=== PATIENT | male | born 1980 | race Caucasian/White ===

== ENCOUNTER 2018-12-23 17:58 | Emergency (ER) | payer SELFPAY ==
[2018-12-23 17:58] VITALS: BP 124/86; PULSE 77; RESP 18; TEMP 36.8; O2SAT 97; BMI 29.0
[2018-12-23] MEDS: Diphth,Pertuss(Acell),Tet Vac 0.5 ML Vial IM (18:30)
--- NOTE | 2018-12-23 19:00 | ED.DEP ---
ED Disposition - Plan for ED Patient: Instructions: LACERATION, Scalp Referrals: Care Physician,No Primary [Primary Care Provider] -
--- NOTE | 2018-12-23 19:03 | ED.VISSUMM ---
- ER Visit Summary Date of Service: 12/23/18 Chief Complaint: Scalp laceration History of Present Illness: The patient is a 38 M presenting with laceration to his scalp. Patient states that he was at work. He states he stood up and the top of his head hit a metal beam. He states the corner of the metal cut the top of his head. This occurred 5 hours prior to arrival. His last tetanus is unknown. He is not on anticoagulants. He cleaned the wound prior to arrival. He does not wish to file Worker's Compensation. He denies loss of consciousness. No amnesia to the event. No vomiting. No other injuries. Physical Examination: Vitals are stable. Patient is afebrile. Alert no acute distress. HEENT exam 3 cm laceration superior scalp Neck is right paraspinal cervical muscle tenderness, no midline tenderness Lungs are clear and equal bilaterally. Heart is regular rate and rhythm. Extremities are unremarkable. Skin is warm and dry. No focal neurologic deficit. Remainder of exam is unremarkable. Emergency Department Course and Treatment: Laceration was irrigated. Anesthetized with lidocaine. 4 eric were placed. Patient tolerated this well. He was given tetanus IM. He was given Tylenol. Advised wound care instructions. Advised to follow-up with primary care physician. Advised return to ED for worsening complaints. Disposition: Discharge home Impression: Scalp laceration, laceration repair This note was generated with [employer] dictation software. It may contain incorrect words, spelling, and punctuation that were not noted in review of the chart prior to signing ED Disposition - Plan for ED Patient: Instructions: LACERATION, Scalp Referrals: Care Physician,No Primary [Primary Care Provider] -
== END 2018-12-23 19:28 | disposition home or self-care (01) ==
LOC: ED 18:38
PROVIDERS: Emergency Provider Emergency Medicine
DX: S01.01XA Laceration without foreign body of scalp, initial encounter (principal); W26.8XXA Contact with other sharp object(s), not elsewhere classified, initial encounter; Y93.9 Activity, unspecified; Y92.9 Unspecified place or not applicable
CPT/HCPCS: 12002; 90471; 90715; 99283

== ENCOUNTER 2021-12-19 20:31 | Emergency (ER) | payer OTHER, SELFPAY ==
[2021-12-19 20:32] VITALS: BP 149/94; PULSE 111; RESP 12; TEMP 37.1; O2SAT 96; BMI 27.3
--- NOTE | 2021-12-19 21:10 | EDS_ITS ---
HPI History of Present Illness Chief Complaint: Lower Extremity Injury Informant: patient and spouse/S.O. Narrative Narrative: Patient was stacking firewood. He was not planning on cutting any so he was wearing sandals. He used an ax to cut some wood. He missed the wood and hit his foot. He cut the majority of the tip of his second toe on his left foot off. He has a very small laceration is quite shallow on the medial aspect of his left great toe. Last tetanus is unknown. He has no medical problems. He is on no medications. He has no allergies. He has no other injuries. Dressing it made it better. Nothing makes it worse other than motion. PFSH PFSH Medical History no medical history Home Medications cephalexin 500 mg capsule 500 mg PO Q6 #28 caps 12/19/21 [Rx Last Taken Unknown] oxycodone-acetaminophen 5 mg-325 mg tablet (Percocet) 1 tab PO Q6H PRN pain 3 days #10 tabs 12/19/21 [Rx Last Taken Unknown] Allergy/AdvReac Type Severity Reaction Status Date / Time No Known Allergies Allergy Verified 12/19/21 20:32 Social History Smoking Status: Never smoker ROS ROS ED Constitutional Constitutional ED: Denies fever(s) Gastrointestinal Gastrointestinal: Denies nausea or vomiting Musculoskeletal Musculoskeletal: Reports other Details: Left foot/toe pain. ; Denies neck pain Integumentary Reports other Details: Laceration/near amputation of left second toe as in history of present illness. Neurologic Neurologic: Reports paresthesias and other Details: Mild numbness to tip of toe. Endocrine Endocrinology: Denies polydipsia or polyuria Hematologic/Lymphatic Hematologic/Lymphatic: Denies easy bleeding or easy bruising EXAM Physical Exam Const Vital Signs: 12/19/21 20:32 Temperature 98.8 F Temperature Source Temporal Pulse Rate 111 H Respiratory Rate 12 Blood Pressure 149/94 H Blood Pressure Mean 112 Pulse Ox 96 Oxygen Delivery Method Room Air Positive well nourished and well developed General Appearance ED: well developed HEENT normocephalic and atraumatic Resp normal respiratory effort Extremity Extremity Narrative: Toe was wrapped up. We ended the tape. We added moisture to the dressing. We can see that there is a about 1 cm really abrasion to the lateral aspect of the left great toe that does not need to be sutured. The second toe has a near amputation of the distal centimeter. The laceration goes through the base of where the nail would be although it looks like he chronically is missing a nail. Tendon function appears to be intact. There is no notable bleeding. There was a small amount on the gauze. This is controlled. The toe hurts but he does seem to have decreased sensation of that tip. That tip is also a little bit dusky. I explained this to the patient and his . This may not live but it is worth giving it a try to put this back. Neuro Sensory Exam: sensory level loss detected Skin Skin Narrative: See above. MDM MDM MDM Narrative Medical decision making narrative: Review of the x-ray read by me and reading by radiology shows fracture of the distal phalangeal segment of the left second toe. I discussed the case with Dr. Cárdenas. He stated that unless that distal fra gment is extremely loose we should try to keep it in place. They will follow-up as an outpatient. Patient was given antibiotics here. He is had tetanus updated. Procedure: Suture laceration: Discussed risks and benefits. We also had a long discussion that this toe has laceration through well over 90 to 95% of the cross-sectional area of the toe. There is a small area on the dorsal medial aspect that is holding the flap on. There is some mild decreased color of that distal portion but its not totally avascular. I am hopeful it might make it but it is going to be somewhat risk he. There is also a laceration through the nailbed. After the blood is removed there is more of the nail remaining than I thought. It was anesthetized with a total of 3-1/2 cc of bupivacaine and lidocaine mixed 50: 50. Good anesthesia was achieved. He had no discomfort at all. The area was scrubbed. I scrubbed the whole toe in the area around it. It was sterilely draped. I copiously irrigated it with over 200 cc of saline. We scrubbed the surface. We irrigated more. It was actually clean. The area was sutured with a total of 5 interrupted 4-0 Ethilon around the periphery. I did not put a suture through the back of the nail. I left this more open. It does not pull apart but this will allow some area for drainage. I do not want to put a large number of sutures in the area to avoid further devascularization. The sutures put in were enough to hold it down quite well. We discussed care. We discussed keeping it away from getting cold. Nonadherent dressing. Minimal activity to let this truly heal. Close follow-up. We discussed signs of infection. Diagnosis: Ax injury left second toe Laceration left second toe with near amputation and partial devascularization Radiography Diagnostic Testing: Clinical Impression(s) from Imaging Studies Foot X-Ray 12/19/21 21:14 IMPRESSION: 1. Fracture of the distal phalangeal segment of the left second toe (of unknown age) with soft tissue swelling and distortion. 2. Soft tissue swelling of the distal left third toe. 3. No other fractures or dislocations. 4. No osteomyelitis or periostitis. Electronically Signed: Rio Carmen MD at 22:09 EDT , Discharge Plan Triage Chief Complaint: Lower Extremity Injury ED Provider: Joe Hall Dx/Rx/DC Orders Clinical Impression: Laceration of toe Prescriptions: New oxycodone-acetaminophen [Percocet] 5-325 mg tablet 1 tab PO Q6H PRN (Reason: pain) 3 Days Qty: 10 0RF cephalexin [cephalexin] 500 mg capsule 500 mg PO Q6 Qty: 28 0RF Primary Care Provider: Care Physician,No Primary Referrals: Isaías Cárdenas DPM [STAFF PHYSICIAN] - 2 Days Care Physician,No Primary [Primary Care Provider] - Disposition Disposition: Home, Self Care
--- NOTE | 2021-12-19 21:14 | RAD_ITS ---
STUDY: LEFT FOOT X-RAY SERIES OF 2115 HOURS ON 12/19/2021 CLINICAL: 41-year-old male with trauma to left foot and left foot pain. TECHNIQUE: 4 view(s) of the foot. COMPARISON: None. FINDINGS: Soft tissue disruption in the region of the toes. There is a fracture of the distal phalangeal segment of the second toe (of unknown age) with soft tissue swelling and distortion. There is soft tissue swelling of the distal left third toe. There is no evidence of other fractures or dislocations. No osseous lytic, sclerotic or mass lesions are evident. No osteomyelitis or periostitis. No other soft tissue abnormalities. RAD/Foot min 3 Views IMPRESSION: 1. Fracture of the distal phalangeal segment of the left second toe (of unknown age) with soft tissue swelling and distortion. 2. Soft tissue swelling of the distal left third toe. 3. No other fractures or dislocations. 4. No osteomyelitis or periostitis. Electronically Signed: Rio Carmen MD at 22:09 EDT ,
[2021-12-19] MEDS: Cephalexin 250 MG Capsule 500 MG PO (21:44)
[2021-12-19] MEDS: Lidocaine 1% (20 ml mdv) 20 ML Vial INFILT (21:45)
[2021-12-19] MEDS: Bupivacaine Mpf 0.5% 30 ML VIAL INFILT (21:45)
[2021-12-20 00:26] VITALS: BP 149/94; PULSE 99; RESP 15; O2SAT 96
== END 2021-12-20 00:29 | disposition home or self-care (01) ==
PROVIDERS: Emergency Provider Emergency Medicine; Visit Provider Emergency Medicine
DX: S92.532A Displaced fracture of distal phalanx of left lesser toe(s), initial encounter for closed fracture (principal); S91.215A Laceration without foreign body of left lesser toe(s) with damage to nail, initial encounter; W27.0XXA Contact with workbench tool, initial encounter; S90.412A Abrasion, left great toe, initial encounter; Z23 Encounter for immunization
CPT/HCPCS: 12001; 73630; 90715; 99284

== ENCOUNTER 2024-11-04 10:05 | Emergency (ER) | payer OTHER, SELFPAY ==
[2024-11-04 10:07] VITALS: BP 99/73; PULSE 96; RESP 18; TEMP 37.2; O2SAT 99; BMI 26.8
[2024-11-04] MEDS: Morphine 4 MG/ML Syringe IV ×2 (10:51→13:38)
[2024-11-04] MEDS: Ondansetron 4 MG/2 ML Vial IV (10:51)
[2024-11-04] MEDS: 0.9% Normal Saline (1000mL) 1,000 ML 999 ML IV (10:52)
--- NOTE | 2024-11-04 10:55 | CT_ITS ---
PROCEDURE: ABDOMEN/PELVIS W IV CONT ONLY 11/04/2024 REASON FOR EXAM: FEVER, LOSS OF APPETITE, RLQ TENDERNESS TECHNIQUE: Abdomen and pelvis CT with intravenous contrast. Coronal and Sagittal reconstruction series were provided. PATIENT PREPARATION: Per protocol ORAL CONTRAST TYPE: None. CONTRAST: 98 cc Isovue 300 One or more dose reduction techniques were used (e.g., Automated exposure control, adjustment of the mA and/or kV according to patient size, use of iterative reconstruction technique. RADIATION DOSE SUMMARY: DLP: 806.82 mGycm COMPARISON: None FINDINGS: Lung bases: Clear Liver: Normal in appearance, measures 18 cm in length. Gallbladder: Unremarkable Spleen: Unremarkable Pancreas: Unremarkable Adrenals: Unremarkable Kidneys: Unremarkable Bladder: Unremarkable Reproductive Organs: Unremarkable Bowel: There is a moderate stool load. Small bowel loops are not distended. There is no inflammatory change identified in the mesentery. Appendix: The appendix measures 0.7 cm in outer wall diameter, coronal image 53/112. There is no visible periappendiceal inflammation. Lymph nodes: There is no pathologic adenopathy by size criteria. Vasculature: Unremarkable Peritoneum / Retroperitoneum: There is 2.5 x 5.0 x 4.5 cm free fluid in the lower pelvis, pre rectal space, estimated volume = 29 cc. Bones: There is a 0.5 cm blastic focus in the right trochanteric region, image 111/133. There is a 0.8 cm blastic focus in the left posterior acetabulum, image 106/133. CT/Abdomen/Pelvis W IV Cont ONLY IMPRESSION: The appendix measures 0.7 cm in outer wall diameter, coronal image 53/112. The re is no visible periappendiceal inflammation. There is 2.5 x 5.0 x 4.5 cm free fluid in the lower pelvis, pre rectal space, e stimated volume = 29 cc. There is a 0.5 cm blastic focus in the right trochanteric region, image 111/133 . There is a 0.8 cm blastic focus in the left posterior acetabulum, image 106/133. These likely represent bone islands. Critical results were discussed with Dr. Alanis by Dr. Nunes at the time of dictation. Reading [facility]
[2024-11-04 11:06] LABS: Absolute Lymphocyte Count 0.74 X10^3/uL (0.83-4.51); Basophil# 0.02 X10^3/uL; Basophil% 0.3 % (0-1); Hematocrit 42.6 % (40-54); Hemoglobin 14.5 g/dL (13.0-16.5); Lymphocyte # 0.74 X10^3/ul (0.83-4.51); Lymphocyte % 10.2 % (19-41); Mean Corpuscular Hgb 30.9 pg (27.0-32.0); Mean Corpuscular Volume 90.6 fL (80-94); Mean Platelet Vol. 9.9 fl (6.2-12.0); Monocyte# 0.43 X10^3/uL; Monocyte% 5.9 % (0-10); NRBC Flagged by Analyzer 0 % (0-5); Neutrophil # 6.02 X10^3/uL (2.7-7.7); Platelet Count 229 K/mm3 (150-450); RBC Distribution Width CV 13.3 % (11.6-14.6); RBC Distribution Width SD 44.7 fl (35.1-43.9); White Blood Count 7.3 K/mm3 (4.4-11.0)
[2024-11-04 11:30] LABS: Anion Gap 9 (5-15); BUN 17 mg/dL (4-19); BUN/Creat Ratio 18.1 RATIO (10-20); Calcium,Total 9.3 mg/dL (7.6-11.0); Carbon Dioxide 25.4 mmol/L (21.0-32.0); Chloride 97 mmol/L (98-108); Creatinine, Serum 0.94 mg/dL (0.70-1.20); EST Glomerular Filtration Rate 103 (>60); Estimated Creatinine Clearance 101.33 ml/min (50-250); Glucose 113 mg/dL (70-99); Potassium 3.8 mmol/L (3.3-5.1); Sodium Level 132 mmol/L (133-145)
--- NOTE | 2024-11-04 11:42 | EDS_ITS ---
HPI <Dr. Georges Alanis MD - Last Filed: 11/04/24 13:08> History of Present Illness Chief Complaint: Abd Pain Detail of Chief Complaint: Abdominal pain that started left upper quadrant now right lower quadrant Informant: patient Onset/Context/Timing Onset: Yesterday Context: Sudden Onset Timing: Continuous Quality: Pain discomfort Location: Presently right lower quadrant Current Severity: Mild Maximum Severity: Moderate Worsened by: Movement and palpation Relieved by: Nothing Associated Symptoms Associated Symptoms: Nausea, Tmax 103 and loss of appetite Narrative Narrative: Patient is a 44-year-old male. He has no significant past medical history. He has no allergies. There is no family history of IBD. He denies history of IBD or IBS. He denies cardiac or respiratory symptoms. He denies urologic symptoms. He denies history of trauma. He does complain of aches. He denies headache, visual, ocular auditory symptoms. He denies rhinorrhea, congestion, postnasal drainage sore throat. He denies cough or shortness of breath. He denies intolerance to greasy or fried foods. He denies history of hiatal hernia, peptic ulcer disease or reflux. Prior similar symptoms: No Recent Illness/Hospitalization: No PFSH <Dr. Georges Alanis MD - Last Filed: 11/04/24 13:08> PFSH Medical History no medical history Home Medications ?Medication ?Instructions ?Recorded ?Last Taken ?Type multivitamin (Daily Multi-Vitamin 1 tab PO DAILY 11/0410/30/24 History tablet) oxycodone-acetaminophen 5 mg-325 1 tab PO Q6H PRN PRN Pain 3 days 11/04/24 Unknown Rx mg tablet #12 TABLETS Allergy/AdvReac Type Severity Reaction Status Date / Time No Known Allergies Allergy Verified 11/04/24 10:08 Social History Smoking Status: Never smoker ROS <Dr. Georges Alanis MD - Last Filed: 11/04/24 13:08> ROS ED Constitutional Constitutional ED: Reports chills, fever(s), sweats and other Details: Night sweats yesterday ; Denies subjective or weight loss Eyes Eyes: Denies blurry vision or change in vision ENT ENT ED: Denies ear pain, rhinorrhea or sore throat Cardiovascular Cardiovascular: Denies chest pain or palpitations Respiratory/Chest Respiratory/Chest: Denies cough, dyspnea or dyspnea on exertion Gastrointestinal Gastrointestinal: Reports abdominal pain and nausea; Denies constipation, diarrhea, melena or vomiting Genitourinary Genitourinary ED: Denies dysuria, hematuria or urinary frequency Musculoskeletal Musculoskeletal: Denies arthralgias or myalgias Integumentary Denies abscess, Abrasions or rash Neurologic Neurologic: Denies headache(s), paresthesias or weakness Hematologic/Lymphatic Hematologic/Lymphatic: Reports systems reviewed and no addt'l complaints, except as documented EXAM <Dr. Georges Alanis MD - Last Filed: 11/04/24 13:08> Physical Exam Const Vital Signs: 11/04/24 10:07 11/04/24 12:05 11/04/24 13:25 Temperature 98.9 F 99.1 F Temperature Source Oral Oral Pulse Rate 96 78 Respiratory Rate 18 16 Blood Pressure 99/73 116/74 Blood Pressure Mean 81 88 Pulse Ox 99 98 Oxygen Delivery Method Room Air Room Air 11/04/24 15:00 11/04/24 17:00 Temperature 99.5 F H Temperature Source Oral Pulse Rate 71 85 Respiratory Rate 15 16 Blood Pressure 117/62 122/80 H Blood Pressure Mean 80 94 Pulse Ox 99 98 Oxygen Delivery Method Room Air Positive well nourished and well developed General Appearance ED: well developed; Negative for pallor HEENT Reports dry mucous membranes HEENT Narrative: Head is atraumatic, cephalic. Ears normal. Nares patent. Posterior pharynx is normal Mouth ED: Yes dry mucous membranes Mouth: dry mucous membranes Eyes PERRL and EOMs intact bilaterally General Eye ED: Negative for pale conjunctiva Neck no lymphadenopathy, supple and no JVD Chest Wall inspection of chest normal Resp normal respiratory effort and clear to auscultation bilaterally Cardio regular rate, regular rhythm, S1 normal heart sound, S2 normal heart sound and no murmurs GI non-distended and no masses; Negative for normal to inspection, nondistended, normoactive bowel sounds, non-tender or hepatosplenomegaly GI Narrative: There is some mild tenderness in the left upper quadrant as well as right lower quadrant in the proximity of McBurney's point. There is no evidence umbilical or inguinal hernia. Bowel sounds are diminished. Palpation: soft Back/Spine no CVA tenderness Extremity normal to inspection General Extremety ED: Negative for edema or tenderness General Extremity: Negative for edema Neuro oriented x3 and CN's II-XII intact bilaterally Sensorium / Orientation: alert Psych mental status grossly normal Skin no rashes or lesions noted and no wounds General Skin Exam: elasticity normal; Negative for jaundice or pallor <Dr. Raphael Alvarez DO - Last Filed: 11/04/24 18:35> Physical Exam Const Vital Signs: 11/04/24 10:07 11/04/24 12:05 11/04/24 13:25 Temperature 98.9 F 99.1 F Temperature Source Oral Oral Pulse Rate 96 78 Respiratory Rate 18 16 Blood Pressure 99/73 116/74 Blood Pressure Mean 81 88 Pulse Ox 99 98 Oxygen Delivery Method Room Air Room Air 11/04/24 15:00 11/04/24 17:00 Temperature 99.5 F H Temperature Source Oral Pulse Rate 71 85 Respiratory Rate 15 16 Blood Pressure 117/62 122/80 H Blood Pressure Mean 80 94 Pulse Ox 99 98 Oxygen Delivery Method Room Air MDM <Dr. Georges Alanis MD - Last Filed: 11/04/24 13:08> [facility] MDM Narrative Medical decision making narrative: Differential diagnosis is appendicitis, mesenteric adenitis, regional enteritis, abdominal pain unknown etiology inflammatory process. Workup included CBC, BMP and CT of the abdomen pelvis with IV contrast. Patient was medicated with morphine for his pain. Patient was informed of results after I spoke with radiologist and there is an abnormal fluid collection noted. Dr. Salazar was paged. Radiologist stated with the increased uptake of contrast in the small bowel wall raises concern for regional enteritis. Does not meet criteria though for regional enteritis/Crohn's. Patient also does not have diarrhea or mucus in his stool. Lab Data Attestation: I reviewed the patient's lab results. Lab results narrative: CBC is unremarkable other than slight shift. Electrolyte panel is unremarkable. Sodium is 132. Labs: Laboratory Results - last 24 hr 11/04/24 10:50 WBC 7.3 RBC 4.70 Hgb 14.5 Hct 42.6 MCV 90.6 MCH 30.9 MCHC 34.0 RDW Std Deviation 44.7 H RDW Coeff of Johann 13.3 Plt Count 229 MPV 9.9 Immature Gran % (Auto) 0.600 Neut % (Auto) 83.0 H Lymph % (Auto) 10.2 L Bandera % (Auto) 5.9 Eos % (Auto) 0.0 Baso % (Auto) 0.3 Absolute Neuts (auto) 6.0 Absolute Lymphs (auto) 0.74 L Nucleated RBC % 0 Sodium 132 L Potassium 3.8 Chloride 97 L Carbon Dioxide 25.4 Anion Gap 9 BUN 17 Creatinine 0.94 Estim Creat Clear Calc 101.33 Est GFR (MDRD) Non-Af 103 BUN/Creatinine Ratio 18.1 Glucose 113 H Calcium 9.3 Radiography Diagnostic Testing: Clinical Impression(s) from Imaging Studies Abdomen/Pelvis CT 11/04/24 10:55 IMPRESSION: The appendix measures 0.7 cm in outer wall diameter, coronal image 53/112. There is no visible periappendiceal inflammation. There is 2.5 x 5.0 x 4.5 cm free fluid in the lower pelvis, pre rectal space, estimated volume = 29 cc. There is a 0.5 cm blastic focus in the right trochanteric region, image 111/133. There is a 0.8 cm blastic focus in the left posterior acetabulum, image 106/133. These likely represent bone islands. Critical results were discussed with Dr. Alanis by Dr. Nunes at the time of dictation. Reading [facility] 11/04/24 13:04 IMPRESSION: The previously seen fluid collection in the pelvis is not seen at this time. Reading Location: [facility] Management Discussion w/another healthcare provider: [employer] (Dr. Salazar was paged at [phone]. Spoke with nurse since he is in a procedure.) Treatment and Re-Evaluation :: Dr. Salazar went over the films. I requested a CT with oral contrast. <Dr. Raphael Alvarez, DO - Last Filed: 11/04/24 18:35> [facility] Lab Data Labs: Laboratory Results - last 24 hr 11/04/24 10:50 WBC 7.3 RBC 4.70 Hgb 14.5 Hct 42.6 MCV 90.6 MCH 30.9 MCHC 34.0 RDW Std Deviation 44.7 H RDW Coeff of Johann 13.3 Plt Count 229 MPV 9.9 Immature Gran % (Auto) 0.600 Neut % (Auto) 83.0 H Lymph % (Auto) 10.2 L Bandera % (Auto) 5.9 Eos % (Auto) 0.0 Baso % (Auto) 0.3 Absolute Neuts (auto) 6.0 Absolute Lymphs (auto) 0.74 L Nucleated RBC % 0 Sodium 132 L Potassium 3.8 Chloride 97 L Carbon Dioxide 25.4 Anion Gap 9 BUN 17 Creatinine 0.94 Estim Creat Clear Calc 101.33 Est GFR (MDRD) Non-Af 103 BUN/Creatinine Ratio 18.1 Glucose 113 H Calcium 9.3 Radiography Diagnostic Testing: Clinical Impression(s) from Imaging Studies Abdomen/Pelvis CT 11/04/24 10:55 IMPRESSION: The appendix measures 0.7 cm in outer wall diameter, coronal image 53/112. There is no visible periappendiceal inflammation. There is 2.5 x 5.0 x 4.5 cm free fluid in the lower pelvis, pre rectal space, estimated volume = 29 cc. There is a 0.5 cm blastic focus in the right trochanteric region, image 111/133. There is a 0.8 cm blastic focus in the left posterior acetabulum, image 106/133. These likely represent bone islands. Critical results were discussed with Dr. Alanis by Dr. Nunes at the time of dictation. Reading Location: [facility] Abdomen CT 11/04/24 13:04 IMPRESSION: The previously seen fluid collection in the pelvis is not seen at this time. Reading Location: [facility] Treatment and Re-Evaluation :: Dr. Salazar went over the films. I requested a CT with oral contrast. 1634: Le. Patient signed out to me for repeat scan with oral contrast. Results were negative by radiology with fluid being resolved normal appendix. I discussed with Dr. Salazar who reviewed the films agrees that appendix is normal he states he sees a small layering of fluid in the pelvis that was not noted by second radiologist. He states the terminal ileum is slightly thickening. Patient does not have family history of irritable bowel disease including Crohn's or ulcerative colitis. He recommended follow-up with GI for further workup. I discussed this with the patient, he is comfortable going home. Per discussion he is having resolving cough however new fevers and myalgias since yesterday. No runny nose no urinary symptoms. I will send for viral swab testing while he is here. I discussed with GI Dr. Wells, we discussed the conversation with surgery and Dr. Salazar findings and concerns were mild thickening terminal ileum. No steroids at this time as there is no family history. He could be seen in the office for further workup as an outpatient. 1830: COVID, flu, RSV negative. Patient will use Tylenol as needed for pain short prescription for oxycodone. He will follow-up with gastroenterology. Discussed still possible viral syndrome with his fever. There is no clinical meningitis symptoms. All questions were answered. Discharge Plan Triage Chief Complaint: Abd Pain ED Provider: Georges Alanis Dx/Rx/DC Orders Clinical Impression: Abdominal pain, Fever, Viral syndrome Instructions: Abdominal Pain, ED Viral Syndrome (Adult) Prescriptions: New oxycodone-acetaminophen 5-325 mg tablet 1 tab PO Q6H PRN PRN (Reason: Pain) 3 Days Qty: 12 0RF No Action multivitamin [Daily Multi-Vitamin] Tablet 1 tab PO DAILY Primary Care Provider: Rene Nicole Referrals: Rene Nicole MD [Primary Care Provider] - Rudy Wells DO [Med Staff - Active Staff] - 1 Week Activity Restrictions/Additional Instructions: Labs normal white count 7.3. CT scan abdomen pelvis x 2 normal appendix. Review from surgeon concerns for thickened ileum. I discussed with Dr. Wells gastroenterology, call to follow-up with him for further evaluation testing. Your COVID influenza and RSV were negative. Use Tylenol first for pain if needed use the oxycodone. Avoid NSAIDs which includes ibuprofen, Advil, Aleve, naproxen. Print Language: Nicaraguan Disposition Disposition: Home, Self Care
[2024-11-04 12:05] VITALS: BP 116/74; PULSE 78; RESP 16; O2SAT 98
--- NOTE | 2024-11-04 13:04 | CT_ITS ---
PROCEDURE: ABDOMEN/PEL W ORAL CONT ONLY 11/04/2024 REASON FOR EXAM: FLUID COLLECTION PELVIS NEAR RECTUM/ANUS TECHNIQUE: Abdomen and pelvis CT without intravenous contrast. Noncontrast technique limits evaluation of the abdominal and pelvic viscera. Coronal and Sagittal reconstruction series were provided. One or more dose reduction techniques were used (e.g., Automated exposure control, adjustment of the mA and/or kV according to patient size, use of iterative reconstruction technique). PATIENT PREPARATION: Per protocol ORAL CONTRAST TYPE: None. CT DLP volume: 7.96 mGy. DLP: 433.47. COMPARISON: Comparison is made with prior study done earlier in the day. FINDINGS: Lung bases: Clear Liver: Unremarkable Gallbladder: Unremarkable Spleen: Normal size. Pancreas: Normal size. No surrounding inflammation. Adrenals: Unremarkable Kidneys: No urolithiasis. No hydronephrosis. Bladder: Unremarkable Bowel: Unremarkable Appendix: Unremarkable Lymph nodes: Unremarkable Vasculature: The abdominal aorta and IVC contours are normal. Noncontrast technique limits evaluation. Peritoneum / Retroperitoneum: No fluid collection seen at this time. Bones: CT/Abdomen/Pel W ORAL Cont Only IMPRESSION: The previously seen fluid collection in the pelvis is not seen at this time. Reading Location: [facility]
[2024-11-04 13:25] VITALS: TEMP 37.3
[2024-11-04 15:00] VITALS: BP 117/62; PULSE 71; RESP 15; O2SAT 99
[2024-11-04 17:00] VITALS: BP 122/80; PULSE 85; RESP 16; TEMP 37.5; O2SAT 98
[2024-11-04 18:47] VITALS: BP 112/78; PULSE 71; RESP 15; TEMP 36.8; O2SAT 99
== END 2024-11-04 18:49 | disposition home or self-care (01) ==
PROVIDERS: Emergency Provider Emergency Medicine; PCP Family Medicine; Visit Provider Emergency Medicine
DX: R10.31 Right lower quadrant pain (principal); B34.9 Viral infection, unspecified; R63.0 Anorexia; R11.0 Nausea; Z11.52 Encounter for screening for COVID-19
CPT/HCPCS: 74176; 74177; 80048; 85025; 87631; 96374; 96375; 96376; 99283; Q9967; A4216; J2405